=== PATIENT | male | born 1960 | race Two or more races ===

== ENCOUNTER 2020-04-06 12:49 | Inpatient (IN) | payer BC, OTHER ==
[~2020-04-06] VITALS: Ht 175.3 cm; Wt 76.4 kg
[2020-04-06] MEDS ORDERED: DexAMETHasone SOD PHOS 10MG/1ML VIAL INJ IV ONE (13:30)
[2020-04-06 13:48] LABS: Basophils # (auto) 0.1 10 ^3/uL (0-0.2); Basophils % (auto) 0.7 % (0.0-2.0); Eosinophils # (auto) 0 10 ^3/uL (0-0.8); Hematocrit 47.2 % (41.0-53.0); Hemoglobin 16.4 g/dL (13.5-17.5); Lymphocytes # (auto) 1.2 10 ^3/uL (0.4-5.4); Lymphocytes % (auto) 7.7 % (10.0-50.0); Mean Corpuscular Hemoglobin 30.1 pg (28.0-32.0); Mean Corpuscular Hgb Conc. 34.9 g/dL (32.0-36.0); Mean Corpuscular Volume 86.3 fL (80.0-100.0); Monocytes # (auto) 0.9 10 ^3/uL (0-1.3); Monocytes % (auto) 5.7 % (0.0-12.0); Neutrophils # (auto) 13.1 10 ^3/uL (1.6-8.6); Neutrophils % (auto) 85.9 % (37.0-80.0); Nucleated Red Blood Cells % 0.3 %; Platelet Count (auto) 342 10^3/uL (140-450); Red Blood Cells 5.46 10^6/uL (4.5-5.90); Red Cell Distribution Width 12.4 % (11.8-14.3); White Blood Cell 15.3 10^3/uL (4.4-10.8)
[2020-04-06 14:05] LABS: INR 1.03 (0.9-1.15); Partial Thromboplastin Time 24.1 sec (23.0-31.2)
[2020-04-06 14:18] LABS: Albumin 2.8 g/dL (3.4-5.0); Anion Gap 6 (5-15); Calcium 8.8 mg/dL (8.5-10.1); Carbon Dioxide 28 mmol/L (21-32); Chloride 96 mmol/L (98-107); Glucose 109 mg/dL (74-106); Potassium 4.3 mmol/L (3.5-5.1); Sodium 130 mmol/L (136-145)
[2020-04-06 14:28] LABS: Alanine Aminotransferase 58 U/L (16-61); Alkaline Phosphatase 98 U/L (45-117); Aspartate Aminotransferase 87 U/L (15-37); BUN/Creatinine Ratio 12.9; Bilirubin, Total 0.7 mg/dL (0.2-1.0); Blood Urea Nitrogen 12 mg/dL (7-18); GFR African American 106 mL/min; GFR Non-African American 88 mL/min; Lactate Dehydrogenase 619 U/L (87-241); Total Protein 8.5 g/dL (6.4-8.2)
[2020-04-06] MEDS ORDERED: ACETAMINOPHEN 500 MG TAB PO ONE (14:30)
[2020-04-06 14:45] LABS: CRP High Sensitivity > 19.0 mg/dL (< 0.3)
[2020-04-06 15:28] LABS: Urine Bacteria NONE SEEN /hpf (None Seen); Urine Blood 1+ /uL (Negative); Urine Mucus FEW (None Seen); Urine Specific Gravity 1.029 (1.001-1.035); Urine WBC 3 /hpf (0 - 3)
[2020-04-06] MEDS ORDERED: MORPHINE SULF INJ 2 MG/ML SYRINGE 1ML IV PRN (16:00)
[2020-04-06] MEDS ORDERED: NITROGLYCERIN 0.4 MG SL TAB SL PRN (16:00)
[2020-04-06] MEDS ORDERED: ACETAMINOPHEN 500 MG TAB PO PRN (16:45)
[2020-04-06] MEDS ORDERED: REMDESIVIR PER PHARMACY 0 ML IV SCH (16:45)
[2020-04-06] MEDS ORDERED: PROMETHAZINE HCL 25 MG/ML 1ML IV PRN (17:00)
[2020-04-06] MEDS ORDERED: LACTULOSE 20Gm/30ML SOLN PO PRN (17:00)
[2020-04-06] MEDS ORDERED: TEMAZEPAM 15 MG CAP PO PRN (17:00)
[2020-04-06] MEDS: SODIUM CHLORIDE 0.9% 1,000 ML IV SCH (17:17)
[2020-04-06] MEDS ORDERED: ALBUTEROL SULF 2.5 MG/0.5ML(0.5%) NEB SOLN NEB SCH (18:00)
[2020-04-06] MEDS ORDERED: IPRATROPIUM BROM 0.5 MG/2.5ML INH SOL NEB SCH (18:00)
[2020-04-06] MEDS: ALBUTEROL SULF HFA 90MCG INH 200DOSE IN PRN (19:52)
[2020-04-06] MEDS: BUDESONIDE (INHALATION) 180 MCG IH IN SCH (19:52)
[2020-04-06] MEDS ORDERED: REMDESIVIR 200 MG in NS 210ml LOADING DOSE ADULT IV ONE (20:00)
[2020-04-06] MEDS: FAMOTIDINE 20 MG TAB PO SCH (22:46)
[2020-04-06] MEDS: CLINDAMYCIN 600MG IV 50 ML IV SCH (22:47)
[2020-04-06] MEDS: ENOXAPARIN SOD 40 MG/0.4 ML SYRINGE SC SCH (22:55)
[2020-04-07] MEDS: CLINDAMYCIN 600MG IV 50 ML IV SCH (05:45)
[2020-04-07] MEDS: BUDESONIDE (INHALATION) 180 MCG IH IN SCH ×2 (06:06→22:00)
[2020-04-07 06:31] LABS: Basophils # (auto) 0 10 ^3/uL (0-0.2); Basophils % (auto) 0.2 % (0.0-2.0); Eosinophils # (auto) 0 10 ^3/uL (0-0.8); Hematocrit 41.9 % (41.0-53.0); Hemoglobin 14.5 g/dL (13.5-17.5); Lymphocytes % (auto) 9.4 % (10.0-50.0); Mean Corpuscular Hemoglobin 30.3 pg (28.0-32.0); Mean Corpuscular Hgb Conc. 34.6 g/dL (32.0-36.0); Mean Corpuscular Volume 87.5 fL (80.0-100.0); Monocytes % (auto) 9.4 % (0.0-12.0); Neutrophils # (auto) 8.7 10 ^3/uL (1.6-8.6); Nucleated Red Blood Cells % 0.4 %; Platelet Count (auto) 351 10^3/uL (140-450); Red Blood Cells 4.79 10^6/uL (4.5-5.90); Red Cell Distribution Width 12.4 % (11.8-14.3); White Blood Cell 10.8 10^3/uL (4.4-10.8)
[2020-04-07 06:41] LABS: Albumin 2.4 g/dL (3.4-5.0); Calcium 8.5 mg/dL (8.5-10.1); Potassium 3.9 mmol/L (3.5-5.1)
[2020-04-07 06:46] LABS: BUN/Creatinine Ratio 18.7; Bilirubin, Total 0.6 mg/dL (0.2-1.0); Total Protein 7.3 g/dL (6.4-8.2)
[2020-04-07] MEDS: SODIUM CHLORIDE 0.9% 1,000 ML IV SCH (07:55)
[2020-04-07] MEDS: traMADol HCL 50 MG TAB PO PRN (08:01)
[2020-04-07] MEDS: ASCORBIC ACID 1,000 MG TAB PO SCH (09:18)
[2020-04-07] MEDS: DexAMETHasone SOD PHOS 10MG/1ML VIAL INJ IV SCH (09:18)
[2020-04-07] MEDS: FAMOTIDINE 20 MG TAB PO SCH ×2 (09:18→23:23)
[2020-04-07] MEDS: ZINC SULFATE 220mg CAP or TAB PO SCH (09:18)
[2020-04-07] MEDS: CHOLECALCIFEROL (VITD3) 2,000 UNIT CAP PO SCH (09:18)
[2020-04-07] MEDS: ENOXAPARIN SOD 40 MG/0.4 ML SYRINGE SC SCH ×2 (09:19→23:23)
[2020-04-07] MEDS ORDERED: levoFLOXacin 500MG 100 ML IV SCH (10:00)
[2020-04-07] MEDS ORDERED: FUROSEMIDE 20 MG/2 ML VIAL IV ONE (10:15)
[2020-04-07] MEDS ORDERED: diphenhdrAMINE HCL 50 MG/1 ML VL IV PRN (10:15)
[2020-04-07] MEDS: REMDESIVIR 100 MG in SODIUM CHL 0.9% 250 ML IV SCH (16:15)
[2020-04-07 20:53] VITALS: BP 144/83
[2020-04-07 21:08] VITALS: BP 143/82
[2020-04-07 21:23] VITALS: BP 130/80
[2020-04-07 21:38] VITALS: BP 140/82
[2020-04-07 21:53] VITALS: BP 138/82
[2020-04-07] MEDS: FAMOTIDINE (10MG/ML) 2ML VL IV SCH (22:00)
[2020-04-07 22:11] VITALS: BP 136/78
[2020-04-07] MEDS: ALBUTEROL SULF HFA 90MCG INH 200DOSE IN PRN (22:31)
[2020-04-08] MEDS: BUDESONIDE (INHALATION) 180 MCG IH IN SCH ×2 (08:33→19:41)
[2020-04-08] MEDS: ALBUTEROL SULF HFA 90MCG INH 200DOSE IN PRN ×2 (08:33→21:13)
[2020-04-08] MEDS: DexAMETHasone SOD PHOS 10MG/1ML VIAL INJ IV SCH (10:24)
[2020-04-08] MEDS: FUROSEMIDE 20 MG/2 ML VIAL IV SCH (10:25)
[2020-04-08] MEDS: FAMOTIDINE (10MG/ML) 2ML VL IV SCH (10:25)
[2020-04-08] MEDS: CHOLECALCIFEROL (VITD3) 2,000 UNIT CAP PO SCH (10:26)
[2020-04-08] MEDS: AZITHROMYCIN 500MG/ 250ML 250 ML IV SCH (10:26)
[2020-04-08] MEDS: ASCORBIC ACID 1,000 MG TAB PO SCH (10:26)
[2020-04-08] MEDS: ZINC SULFATE 220mg CAP or TAB PO SCH (10:26)
[2020-04-08] MEDS: FAMOTIDINE 20 MG TAB PO SCH (10:26)
[2020-04-08] MEDS: ENOXAPARIN SOD 40 MG/0.4 ML SYRINGE SC SCH (10:27)
[2020-04-08] MEDS ORDERED: PIPERACILLIN-TAZO 4.5GM 100 ML IV ONE (15:00)
[2020-04-08] MEDS: REMDESIVIR 100 MG in SODIUM CHL 0.9% 250 ML IV SCH (16:02)
[2020-04-08] MEDS ORDERED: PIPERACILLIN-TAZOB 3.375GM 100 ML IV ONE (23:01)
[2020-04-09] MEDS: PIPERACILLIN-TAZOB 3.375GM 100 ML IV SCH ×4 (00:25→21:08)
[2020-04-09] MEDS: FAMOTIDINE 20 MG TAB PO SCH ×3 (00:25→21:09)
[2020-04-09] MEDS: ENOXAPARIN SOD 40 MG/0.4 ML SYRINGE SC SCH ×3 (00:25→21:09)
[2020-04-09] MEDS: BUDESONIDE (INHALATION) 180 MCG IH IN SCH (07:00)
[2020-04-09] MEDS: AZITHROMYCIN 500MG/ 250ML 250 ML IV SCH (09:07)
[2020-04-09] MEDS: DexAMETHasone SOD PHOS 10MG/1ML VIAL INJ IV SCH (09:07)
[2020-04-09] MEDS: FUROSEMIDE 20 MG/2 ML VIAL IV SCH (09:07)
[2020-04-09] MEDS: ASCORBIC ACID 1,000 MG TAB PO SCH (09:07)
[2020-04-09] MEDS: CHOLECALCIFEROL (VITD3) 2,000 UNIT CAP PO SCH (09:07)
[2020-04-09] MEDS: ZINC SULFATE 220mg CAP or TAB PO SCH (09:07)
[2020-04-09] MEDS: REMDESIVIR 100 MG in SODIUM CHL 0.9% 250 ML IV SCH (15:42)
[2020-04-10] MEDS: PIPERACILLIN-TAZOB 3.375GM 100 ML IV SCH ×3 (05:58→21:49)
[2020-04-10] MEDS: BUDESONIDE (INHALATION) 180 MCG IH IN SCH ×3 (08:18→18:15)
[2020-04-10 08:22] LABS: Albumin 2.5 g/dL (3.4-5.0); Calcium 8.6 mg/dL (8.5-10.1); Potassium 3.9 mmol/L (3.5-5.1)
[2020-04-10 08:26] LABS: BUN/Creatinine Ratio 18.4; Total Protein 7.9 g/dL (6.4-8.2)
[2020-04-10] MEDS: FUROSEMIDE 20 MG/2 ML VIAL IV SCH (10:00)
[2020-04-10] MEDS: AZITHROMYCIN 500MG/ 250ML 250 ML IV SCH (10:00)
[2020-04-10] MEDS: ENOXAPARIN SOD 40 MG/0.4 ML SYRINGE SC SCH ×2 (10:00→21:48)
[2020-04-10] MEDS: FAMOTIDINE 20 MG TAB PO SCH ×2 (10:00→21:49)
[2020-04-10] MEDS: ASCORBIC ACID 1,000 MG TAB PO SCH (10:00)
[2020-04-10] MEDS: CHOLECALCIFEROL (VITD3) 2,000 UNIT CAP PO SCH (10:00)
[2020-04-10] MEDS: DexAMETHasone SOD PHOS 10MG/1ML VIAL INJ IV SCH (10:00)
[2020-04-10] MEDS: ZINC SULFATE 220mg CAP or TAB PO SCH (10:00)
[2020-04-10] MEDS: ALBUTEROL SULF HFA 90MCG INH 200DOSE IN PRN ×2 (10:00→18:45)
[2020-04-10] MEDS: REMDESIVIR 100 MG in SODIUM CHL 0.9% 250 ML IV SCH (16:35)
[2020-04-11] MEDS: PIPERACILLIN-TAZOB 3.375GM 100 ML IV SCH ×3 (06:00→21:23)
[2020-04-11] MEDS: BUDESONIDE (INHALATION) 180 MCG IH IN SCH ×2 (07:03→18:53)
[2020-04-11] MEDS: ALBUTEROL SULF HFA 90MCG INH 200DOSE IN PRN ×2 (07:03→18:53)
[2020-04-11] MEDS: CHOLECALCIFEROL (VITD3) 2,000 UNIT CAP PO SCH (10:00)
[2020-04-11] MEDS: DexAMETHasone SOD PHOS 10MG/1ML VIAL INJ IV SCH (10:58)
[2020-04-11] MEDS: ASCORBIC ACID 1,000 MG TAB PO SCH (10:59)
[2020-04-11] MEDS: ZINC SULFATE 220mg CAP or TAB PO SCH (10:59)
[2020-04-11] MEDS: FAMOTIDINE 20 MG TAB PO SCH ×2 (10:59→21:24)
[2020-04-11] MEDS: ENOXAPARIN SOD 40 MG/0.4 ML SYRINGE SC SCH ×2 (10:59→21:24)
[2020-04-11] MEDS: AZITHROMYCIN 500MG/ 250ML 250 ML IV SCH (11:00)
[2020-04-11] MEDS: FUROSEMIDE 20 MG/2 ML VIAL IV SCH (11:02)
[2020-04-12] MEDS: PIPERACILLIN-TAZOB 3.375GM 100 ML IV SCH ×3 (05:51→22:04)
[2020-04-12] MEDS: BUDESONIDE (INHALATION) 180 MCG IH IN SCH ×2 (08:55→22:00)
[2020-04-12] MEDS: ALBUTEROL SULF HFA 90MCG INH 200DOSE IN PRN (08:55)
[2020-04-12] MEDS: ZINC SULFATE 220mg CAP or TAB PO SCH (10:00)
[2020-04-12] MEDS: CHOLECALCIFEROL (VITD3) 2,000 UNIT CAP PO SCH (10:00)
[2020-04-12] MEDS: ENOXAPARIN SOD 40 MG/0.4 ML SYRINGE SC SCH ×2 (10:00→22:04)
[2020-04-12] MEDS: ASCORBIC ACID 1,000 MG TAB PO SCH (10:00)
[2020-04-12] MEDS: DexAMETHasone SOD PHOS 10MG/1ML VIAL INJ IV SCH (10:00)
[2020-04-12] MEDS: FUROSEMIDE 20 MG/2 ML VIAL IV SCH (10:00)
[2020-04-12] MEDS: FAMOTIDINE 20 MG TAB PO SCH ×2 (10:00→22:04)
[2020-04-12] MEDS: AZITHROMYCIN 500MG/ 250ML 250 ML IV SCH (10:00)
[2020-04-12] MEDS ORDERED: LORazepam 2MG/ML-1ML VIAL IV ONE (11:30)
[2020-04-13] MEDS: PIPERACILLIN-TAZOB 3.375GM 100 ML IV SCH ×3 (05:32→22:19)
[2020-04-13 06:19] LABS: Basophils # (auto) 0 10 ^3/uL (0-0.2); Basophils % (auto) 0.2 % (0.0-2.0); Eosinophils # (auto) 0.1 10 ^3/uL (0-0.8); Eosinophils % (auto) 0.7 % (0.0-7.0); Hematocrit 38.4 % (41.0-53.0); Hemoglobin 12.9 g/dL (13.5-17.5); Lymphocytes # (auto) 2.1 10 ^3/uL (0.4-5.4); Lymphocytes % (auto) 16.1 % (10.0-50.0); Mean Corpuscular Hemoglobin 29.5 pg (28.0-32.0); Mean Corpuscular Hgb Conc. 33.7 g/dL (32.0-36.0); Mean Corpuscular Volume 87.4 fL (80.0-100.0); Monocytes # (auto) 1.2 10 ^3/uL (0-1.3); Monocytes % (auto) 9.5 % (0.0-12.0); Neutrophils # (auto) 9.3 10 ^3/uL (1.6-8.6); Neutrophils % (auto) 73.5 % (37.0-80.0); Nucleated Red Blood Cells % 0.1 %; Platelet Count (auto) 525 10^3/uL (140-450); Red Blood Cells 4.39 10^6/uL (4.5-5.90); Red Cell Distribution Width 12.4 % (11.8-14.3); White Blood Cell 12.7 10^3/uL (4.4-10.8)
[2020-04-13 06:32] LABS: Potassium 3.5 mmol/L (3.5-5.1)
[2020-04-13 07:01] LABS: Albumin 2.1 g/dL (3.4-5.0); BUN/Creatinine Ratio 24.7; Bilirubin, Total 0.7 mg/dL (0.2-1.0); CRP High Sensitivity 6.6 mg/dL (< 0.3); Calcium 8.5 mg/dL (8.5-10.1); Total Protein 7.2 g/dL (6.4-8.2)
[2020-04-13] MEDS: BUDESONIDE (INHALATION) 180 MCG IH IN SCH ×2 (07:39→18:11)
[2020-04-13] MEDS: DexAMETHasone SOD PHOS 10MG/1ML VIAL INJ IV SCH (10:09)
[2020-04-13] MEDS: ZINC SULFATE 220mg CAP or TAB PO SCH (10:11)
[2020-04-13] MEDS: FUROSEMIDE 20 MG/2 ML VIAL IV SCH (10:11)
[2020-04-13] MEDS: ASCORBIC ACID 1,000 MG TAB PO SCH (10:12)
[2020-04-13] MEDS: CHOLECALCIFEROL (VITD3) 2,000 UNIT CAP PO SCH (10:12)
[2020-04-13] MEDS: FAMOTIDINE 20 MG TAB PO SCH ×2 (10:12→22:27)
[2020-04-13] MEDS: ENOXAPARIN SOD 40 MG/0.4 ML SYRINGE SC SCH ×2 (10:12→22:27)
[2020-04-13] MEDS: ALBUTEROL SULF HFA 90MCG INH 200DOSE IN PRN (18:11)
[2020-04-14] MEDS: PIPERACILLIN-TAZOB 3.375GM 100 ML IV SCH ×2 (06:02→15:02)
[2020-04-14] MEDS: ALBUTEROL SULF HFA 90MCG INH 200DOSE IN PRN ×2 (07:29→22:01)
[2020-04-14] MEDS: BUDESONIDE (INHALATION) 180 MCG IH IN SCH ×2 (07:29→22:01)
[2020-04-14 07:31] LABS: Basophils # (auto) 0 10 ^3/uL (0-0.2); Basophils % (auto) 0.2 % (0.0-2.0); Eosinophils # (auto) 0.1 10 ^3/uL (0-0.8); Hemoglobin 13.7 g/dL (13.5-17.5); Mean Corpuscular Volume 87.2 fL (80.0-100.0); Monocytes # (auto) 1.3 10 ^3/uL (0-1.3); Monocytes % (auto) 10.5 % (0.0-12.0)
[2020-04-14 07:33] LABS: Eosinophils % (auto) 0.7 % (0.0-7.0); Hematocrit 38.9 % (41.0-53.0); Lymphocytes # (auto) 2.7 10 ^3/uL (0.4-5.4); Lymphocytes % (auto) 22.5 % (10.0-50.0); Mean Corpuscular Hemoglobin 30.7 pg (28.0-32.0); Mean Corpuscular Hgb Conc. 35.2 g/dL (32.0-36.0); Neutrophils % (auto) 66.1 % (37.0-80.0); Platelet Count (auto) 466 10^3/uL (140-450); Red Blood Cells 4.46 10^6/uL (4.5-5.90); Red Cell Distribution Width 12.3 % (11.8-14.3); White Blood Cell 12.1 10^3/uL (4.4-10.8)
[2020-04-14 07:49] LABS: Potassium 3.6 mmol/L (3.5-5.1)
[2020-04-14 07:55] LABS: Albumin 2.1 g/dL (3.4-5.0); BUN/Creatinine Ratio 22.5; Bilirubin, Total 0.6 mg/dL (0.2-1.0); Calcium 8.5 mg/dL (8.5-10.1); Total Protein 7.1 g/dL (6.4-8.2)
[2020-04-14] MEDS: ASCORBIC ACID 1,000 MG TAB PO SCH (12:38)
[2020-04-14] MEDS: FAMOTIDINE 20 MG TAB PO SCH (12:38)
[2020-04-14] MEDS: DexAMETHasone SOD PHOS 10MG/1ML VIAL INJ IV SCH (12:38)
[2020-04-14] MEDS: FUROSEMIDE 20 MG/2 ML VIAL IV SCH (12:38)
[2020-04-14] MEDS: ZINC SULFATE 220mg CAP or TAB PO SCH (12:38)
[2020-04-14] MEDS: CHOLECALCIFEROL (VITD3) 2,000 UNIT CAP PO SCH (12:38)
[2020-04-14] MEDS: ENOXAPARIN SOD 40 MG/0.4 ML SYRINGE SC SCH (12:39)
[2020-04-15] MEDS: ENOXAPARIN SOD 40 MG/0.4 ML SYRINGE SC SCH ×3 (00:07→22:52)
[2020-04-15] MEDS: FAMOTIDINE 20 MG TAB PO SCH ×3 (00:07→22:52)
[2020-04-15] MEDS: PIPERACILLIN-TAZOB 3.375GM 100 ML IV SCH ×4 (00:08→22:52)
[2020-04-15] MEDS: ZINC SULFATE 220mg CAP or TAB PO SCH (10:09)
[2020-04-15] MEDS: DexAMETHasone SOD PHOS 10MG/1ML VIAL INJ IV SCH (10:10)
[2020-04-15] MEDS: CHOLECALCIFEROL (VITD3) 2,000 UNIT CAP PO SCH (10:10)
[2020-04-15] MEDS: ASCORBIC ACID 1,000 MG TAB PO SCH (10:10)
[2020-04-15] MEDS: FUROSEMIDE 20 MG/2 ML VIAL IV SCH (10:11)
[2020-04-15] MEDS: ALBUTEROL SULF HFA 90MCG INH 200DOSE IN PRN ×2 (10:22→21:44)
[2020-04-15] MEDS: BUDESONIDE (INHALATION) 180 MCG IH IN SCH ×2 (10:22→21:44)
[2020-04-15 12:00] VITALS: BP 104/68
[2020-04-15 21:15] LABS: Urine Bacteria NONE SEEN /hpf (None Seen); Urine Blood Negative /uL (Negative); Urine Mucus FEW (None Seen); Urine Specific Gravity 1.031 (1.001-1.035); Urine WBC 1 /hpf (0 - 3)
[2020-04-16] MEDS: PIPERACILLIN-TAZOB 3.375GM 100 ML IV SCH ×3 (06:30→21:55)
[2020-04-16] MEDS: BUDESONIDE (INHALATION) 180 MCG IH IN SCH ×2 (07:05→19:30)
[2020-04-16] MEDS: ALBUTEROL SULF HFA 90MCG INH 200DOSE IN PRN ×2 (07:05→19:30)
[2020-04-16] MEDS: DexAMETHasone SOD PHOS 10MG/1ML VIAL INJ IV SCH (09:43)
[2020-04-16] MEDS: FUROSEMIDE 20 MG/2 ML VIAL IV SCH (09:44)
[2020-04-16] MEDS: FAMOTIDINE 20 MG TAB PO SCH ×2 (09:44→21:56)
[2020-04-16] MEDS: ZINC SULFATE 220mg CAP or TAB PO SCH (09:44)
[2020-04-16] MEDS: CHOLECALCIFEROL (VITD3) 2,000 UNIT CAP PO SCH (09:44)
[2020-04-16] MEDS: ASCORBIC ACID 1,000 MG TAB PO SCH (09:44)
[2020-04-16] MEDS: ENOXAPARIN SOD 40 MG/0.4 ML SYRINGE SC SCH ×2 (09:44→21:56)
[2020-04-16 11:01] VITALS: BP 113/75
[2020-04-16 13:19] VITALS: BP 136/77
[2020-04-16 16:54] VITALS: BP 109/48
[2020-04-16 22:00] VITALS: BP 101/55
[2020-04-17 05:22] VITALS: BP 108/72
[2020-04-17] MEDS: PIPERACILLIN-TAZOB 3.375GM 100 ML IV SCH ×2 (06:24→14:50)
[2020-04-17] MEDS: BUDESONIDE (INHALATION) 180 MCG IH IN SCH ×2 (06:38→18:15)
[2020-04-17] MEDS: ALBUTEROL SULF HFA 90MCG INH 200DOSE IN PRN ×2 (06:39→18:15)
[2020-04-17 06:59] LABS: Hematocrit 39.3 % (41.0-53.0); Hemoglobin 13.7 g/dL (13.5-17.5); Mean Corpuscular Hemoglobin 30.6 pg (28.0-32.0); Mean Corpuscular Hgb Conc. 34.8 g/dL (32.0-36.0); Mean Corpuscular Volume 87.9 fL (80.0-100.0); Platelet Count (auto) 415 10^3/uL (140-450); Red Blood Cells 4.47 10^6/uL (4.5-5.90); Red Cell Distribution Width 12.4 % (11.8-14.3); White Blood Cell 12.9 10^3/uL (4.4-10.8)
[2020-04-17 07:24] LABS: Band Neutrophils % (manual) 0; Basophils % (manual) 0 (0.0-2.0); Blast Cells 0; Eosinophils % (manual) 0 (0-7); Metamyelocytes % 0; Myelocytes % 0; Promyelocytes % 0; Reactive Lymphocytes 0
[2020-04-17 07:24] LABS: Potassium 4.2 mmol/L (3.5-5.1)
[2020-04-17 07:41] LABS: Albumin 2.4 g/dL (3.4-5.0); Bilirubin, Total 0.6 mg/dL (0.2-1.0); Calcium 8.9 mg/dL (8.5-10.1); Magnesium 2.7 mg/dL (1.6-2.6); Total Protein 7.3 g/dL (6.4-8.2)
[2020-04-17 08:43] VITALS: BP 106/68
[2020-04-17 08:43] LABS: Lymphocytes % (manual) 26 (10.0-50.0); Monocytes % (manual) 3 (0-12)
[2020-04-17] MEDS: CHOLECALCIFEROL (VITD3) 2,000 UNIT CAP PO SCH (10:40)
[2020-04-17] MEDS: FUROSEMIDE 20 MG/2 ML VIAL IV SCH (10:40)
[2020-04-17] MEDS: ZINC SULFATE 220mg CAP or TAB PO SCH (10:40)
[2020-04-17] MEDS: DexAMETHasone SOD PHOS 10MG/1ML VIAL INJ IV SCH (10:40)
[2020-04-17] MEDS: ASCORBIC ACID 1,000 MG TAB PO SCH (10:40)
[2020-04-17] MEDS: FAMOTIDINE 20 MG TAB PO SCH ×2 (10:40→21:56)
[2020-04-17] MEDS: ENOXAPARIN SOD 40 MG/0.4 ML SYRINGE SC SCH ×2 (10:41→21:56)
[2020-04-17 13:00] VITALS: BP 111/74
[2020-04-17 16:56] VITALS: BP 114/71
[2020-04-17 22:00] VITALS: BP 99/57
[2020-04-18 05:00] VITALS: BP 123/77
[2020-04-18] MEDS: BUDESONIDE (INHALATION) 180 MCG IH IN SCH (07:07)
[2020-04-18 09:00] VITALS: BP 115/79
[2020-04-18] MEDS: ZINC SULFATE 220mg CAP or TAB PO SCH (11:35)
[2020-04-18] MEDS: ASCORBIC ACID 1,000 MG TAB PO SCH (11:36)
[2020-04-18] MEDS: FAMOTIDINE 20 MG TAB PO SCH ×2 (11:36→22:41)
[2020-04-18] MEDS: CHOLECALCIFEROL (VITD3) 2,000 UNIT CAP PO SCH (11:36)
[2020-04-18] MEDS: DexAMETHasone SOD PHOS 10MG/1ML VIAL INJ IV SCH (11:42)
[2020-04-18] MEDS: FUROSEMIDE 20 MG/2 ML VIAL IV SCH (11:42)
[2020-04-18] MEDS: ENOXAPARIN SOD 40 MG/0.4 ML SYRINGE SC SCH ×2 (11:43→22:41)
[2020-04-18 13:00] VITALS: BP 104/74
[2020-04-18 17:00] VITALS: BP 102/61
[2020-04-18 22:00] VITALS: BP 113/69
[2020-04-19 06:50] VITALS: BP 119/81
[2020-04-19] MEDS: ALBUTEROL SULF HFA 90MCG INH 200DOSE IN PRN ×2 (07:07→19:18)
[2020-04-19 09:00] VITALS: BP 121/76
[2020-04-19] MEDS: ZINC SULFATE 220mg CAP or TAB PO SCH (09:45)
[2020-04-19] MEDS: DexAMETHasone SOD PHOS 10MG/1ML VIAL INJ IV SCH (09:48)
[2020-04-19] MEDS: FUROSEMIDE 20 MG/2 ML VIAL IV SCH (09:48)
[2020-04-19] MEDS: ENOXAPARIN SOD 40 MG/0.4 ML SYRINGE SC SCH ×2 (09:49→21:48)
[2020-04-19] MEDS: CHOLECALCIFEROL (VITD3) 2,000 UNIT CAP PO SCH (09:49)
[2020-04-19] MEDS: ASCORBIC ACID 1,000 MG TAB PO SCH (09:49)
[2020-04-19] MEDS: BUDESONIDE (INHALATION) 180 MCG IH IN SCH ×2 (10:00→19:17)
[2020-04-19] MEDS: FAMOTIDINE 20 MG TAB PO SCH ×2 (11:01→21:47)
[2020-04-19 13:00] VITALS: BP 98/57
[2020-04-19 17:00] VITALS: BP 114/71
[2020-04-19 21:00] VITALS: BP 126/68
[2020-04-20] MEDS: ALBUTEROL SULF HFA 90MCG INH 200DOSE IN PRN ×2 (06:27→21:44)
[2020-04-20 06:45] LABS: Hematocrit 40.5 % (41.0-53.0); Hemoglobin 14.1 g/dL (13.5-17.5); Mean Corpuscular Hemoglobin 30.5 pg (28.0-32.0); Mean Corpuscular Hgb Conc. 34.9 g/dL (32.0-36.0); Mean Corpuscular Volume 87.5 fL (80.0-100.0); Platelet Count (auto) 385 10^3/uL (140-450); Red Blood Cells 4.63 10^6/uL (4.5-5.90); Red Cell Distribution Width 12.8 % (11.8-14.3); White Blood Cell 12.1 10^3/uL (4.4-10.8)
[2020-04-20 06:54] LABS: Potassium 4.4 mmol/L (3.5-5.1)
[2020-04-20 07:03] LABS: Albumin 2.7 g/dL (3.4-5.0); BUN/Creatinine Ratio 26.2; Bilirubin, Total 0.5 mg/dL (0.2-1.0); CRP High Sensitivity 0.29 mg/dL (< 0.3); Calcium 8.9 mg/dL (8.5-10.1); Total Protein 7.3 g/dL (6.4-8.2)
[2020-04-20 07:23] LABS: Blast Cells 0; Promyelocytes % 0; Reactive Lymphocytes 0
[2020-04-20 08:00] VITALS: BP 120/81
[2020-04-20] MEDS: ASCORBIC ACID 1,000 MG TAB PO SCH (10:57)
[2020-04-20] MEDS: ENOXAPARIN SOD 40 MG/0.4 ML SYRINGE SC SCH ×2 (10:58→21:54)
[2020-04-20] MEDS: FAMOTIDINE 20 MG TAB PO SCH ×2 (10:58→21:53)
[2020-04-20] MEDS: FUROSEMIDE 20 MG/2 ML VIAL IV SCH (10:59)
[2020-04-20] MEDS: ZINC SULFATE 220mg CAP or TAB PO SCH (10:59)
[2020-04-20] MEDS: DexAMETHasone SOD PHOS 10MG/1ML VIAL INJ IV SCH (10:59)
[2020-04-20] MEDS: CHOLECALCIFEROL (VITD3) 2,000 UNIT CAP PO SCH (11:00)
[2020-04-20 12:08] LABS: Band Neutrophils % (manual) 5; Basophils % (manual) 1 (0.0-2.0); Eosinophils % (manual) 2 (0-7); Lymphocytes % (manual) 24 (10.0-50.0); Metamyelocytes % 1; Monocytes % (manual) 9 (0-12); Myelocytes % 4
[2020-04-20 16:00] VITALS: BP 103/59
[2020-04-20] MEDS: BUDESONIDE (INHALATION) 180 MCG IH IN SCH (21:44)
[2020-04-20 22:00] VITALS: BP 102/51
[2020-04-21 05:00] VITALS: BP 119/77
[2020-04-21 09:39] VITALS: BP 110/70
[2020-04-21] MEDS: FAMOTIDINE 20 MG TAB PO SCH ×2 (10:00→21:55)
[2020-04-21] MEDS: CHOLECALCIFEROL (VITD3) 2,000 UNIT CAP PO SCH (10:00)
[2020-04-21] MEDS: ENOXAPARIN SOD 40 MG/0.4 ML SYRINGE SC SCH ×2 (11:01→21:55)
[2020-04-21] MEDS: FUROSEMIDE 20 MG/2 ML VIAL IV SCH (11:01)
[2020-04-21] MEDS: DexAMETHasone SOD PHOS 10MG/1ML VIAL INJ IV SCH (11:04)
[2020-04-21] MEDS: ASCORBIC ACID 1,000 MG TAB PO SCH (11:05)
[2020-04-21] MEDS: ZINC SULFATE 220mg CAP or TAB PO SCH (11:05)
[2020-04-21 16:00] VITALS: BP 113/82
[2020-04-21] MEDS: BUDESONIDE (INHALATION) 180 MCG IH IN SCH (22:00)
[2020-04-21 22:59] VITALS: BP 122/82
[2020-04-22] MEDS: BUDESONIDE (INHALATION) 180 MCG IH IN SCH ×3 (01:08→22:19)
[2020-04-22 05:05] VITALS: BP 121/79
[2020-04-22 08:00] VITALS: BP 105/72
[2020-04-22] MEDS: ENOXAPARIN SOD 40 MG/0.4 ML SYRINGE SC SCH ×2 (09:53→22:20)
[2020-04-22] MEDS: FUROSEMIDE 20 MG/2 ML VIAL IV SCH (09:53)
[2020-04-22] MEDS: DexAMETHasone SOD PHOS 10MG/1ML VIAL INJ IV SCH (09:53)
[2020-04-22] MEDS: FAMOTIDINE 20 MG TAB PO SCH ×2 (09:54→22:20)
[2020-04-22] MEDS: ZINC SULFATE 220mg CAP or TAB PO SCH (09:55)
[2020-04-22] MEDS: CHOLECALCIFEROL (VITD3) 2,000 UNIT CAP PO SCH (09:55)
[2020-04-22] MEDS: ASCORBIC ACID 1,000 MG TAB PO SCH (09:55)
[2020-04-22 16:00] VITALS: BP 112/70
[2020-04-22] MEDS: ACETYLCYSTEINE 20%(200MG/ML) SOL 4ML NEB SCH (22:00)
[2020-04-23] VITALS: BP 132/81
[2020-04-23] MEDS: ACETYLCYSTEINE 20%(200MG/ML) SOL 4ML NEB SCH (05:46)
[2020-04-23 08:00] VITALS: BP 116/79
[2020-04-23] MEDS: CHOLECALCIFEROL (VITD3) 2,000 UNIT CAP PO SCH (10:20)
[2020-04-23] MEDS: FUROSEMIDE 20 MG/2 ML VIAL IV SCH (10:22)
[2020-04-23] MEDS: DexAMETHasone SOD PHOS 10MG/1ML VIAL INJ IV SCH (10:22)
[2020-04-23] MEDS: ZINC SULFATE 220mg CAP or TAB PO SCH (10:25)
[2020-04-23] MEDS: BUDESONIDE (INHALATION) 180 MCG IH IN SCH ×2 (10:25→20:00)
[2020-04-23] MEDS: ASCORBIC ACID 1,000 MG TAB PO SCH (10:25)
[2020-04-23] MEDS: ENOXAPARIN SOD 40 MG/0.4 ML SYRINGE SC SCH ×2 (10:25→21:36)
[2020-04-23] MEDS: FAMOTIDINE 20 MG TAB PO SCH ×2 (10:26→21:35)
[2020-04-23] MEDS: FLORASTOR (S. BOULARDII) 250 MG CAP PO SCH (11:15)
[2020-04-23] MEDS: PIPERACILLIN-TAZO 4.5GM 100 ML IV SCH ×2 (14:30→21:35)
[2020-04-23 16:05] VITALS: BP 108/71
[2020-04-23 20:00] VITALS: BP 98/58
[2020-04-23] MEDS: ALBUTEROL SULF HFA 90MCG INH 200DOSE IN PRN (20:00)
[2020-04-24] VITALS: BP 94/56
[2020-04-24] MEDS: traMADol HCL 50 MG TAB PO PRN (01:44)
[2020-04-24] MEDS: PIPERACILLIN-TAZO 4.5GM 100 ML IV SCH ×3 (06:00→22:50)
[2020-04-24] MEDS: BUDESONIDE (INHALATION) 180 MCG IH IN SCH ×2 (07:14→19:10)
[2020-04-24] MEDS: ALBUTEROL SULF HFA 90MCG INH 200DOSE IN PRN ×2 (07:14→19:10)
[2020-04-24 08:00] VITALS: BP 112/70
[2020-04-24 09:00] VITALS: BP 112/70
[2020-04-24] MEDS: ZINC SULFATE 220mg CAP or TAB PO SCH (09:37)
[2020-04-24] MEDS: DexAMETHasone SOD PHOS 10MG/1ML VIAL INJ IV SCH (09:37)
[2020-04-24] MEDS: ENOXAPARIN SOD 40 MG/0.4 ML SYRINGE SC SCH ×2 (09:37→22:51)
[2020-04-24] MEDS: FLORASTOR (S. BOULARDII) 250 MG CAP PO SCH (09:38)
[2020-04-24] MEDS: CHOLECALCIFEROL (VITD3) 2,000 UNIT CAP PO SCH (09:39)
[2020-04-24] MEDS: FAMOTIDINE 20 MG TAB PO SCH ×2 (09:39→22:50)
[2020-04-24] MEDS: ASCORBIC ACID 1,000 MG TAB PO SCH (09:39)
[2020-04-24] MEDS: FUROSEMIDE 20 MG/2 ML VIAL IV SCH (09:40)
[2020-04-24 16:27] VITALS: BP 114/78
[2020-04-24 16:58] VITALS: BP 120/60
[2020-04-25] VITALS: BP 109/73
[2020-04-25] MEDS: PIPERACILLIN-TAZO 4.5GM 100 ML IV SCH ×2 (05:31→14:00)
[2020-04-25] MEDS: ALBUTEROL SULF HFA 90MCG INH 200DOSE IN PRN (07:30)
[2020-04-25] MEDS: BUDESONIDE (INHALATION) 180 MCG IH IN SCH (07:30)
[2020-04-25 08:00] VITALS: BP 109/74
[2020-04-25] MEDS: DexAMETHasone SOD PHOS 10MG/1ML VIAL INJ IV SCH (09:48)
[2020-04-25] MEDS: CHOLECALCIFEROL (VITD3) 2,000 UNIT CAP PO SCH (09:52)
[2020-04-25] MEDS: FLORASTOR (S. BOULARDII) 250 MG CAP PO SCH (09:52)
[2020-04-25] MEDS: FAMOTIDINE 20 MG TAB PO SCH (09:52)
[2020-04-25] MEDS: ENOXAPARIN SOD 40 MG/0.4 ML SYRINGE SC SCH (09:52)
[2020-04-25] MEDS: ASCORBIC ACID 1,000 MG TAB PO SCH (09:52)
[2020-04-25] MEDS: FUROSEMIDE 20 MG/2 ML VIAL IV SCH (09:53)
[2020-04-25] MEDS: ZINC SULFATE 220mg CAP or TAB PO SCH (09:53)
== END 2020-04-25 15:50 | disposition home or self-care (01) | DRG 177 ==
LOC: ER 12:49 → OVERFLOW 12:50 → TELE-E-ADS 04-16 10:31
PROVIDERS: ADMIT Internal Medicine; ATTEND Internal Medicine
PROC: XW033E5 Introduction of Remdesivir Anti-infective into Peripheral Vein, Percutaneous Approach, New Technology Group 5 (ICD-10-PCS; principal; 2020-04-06)
PROC: XW13325 Transfusion of Convalescent Plasma (Nonautologous) into Peripheral Vein, Percutaneous Approach, New Technology Group 5 (ICD-10-PCS; 2020-04-07)
DX: U07.1 COVID-19 (principal); J96.01 Acute respiratory failure with hypoxia; J12.89 Other viral pneumonia; E87.1 Hypo-osmolality and hyponatremia; E55.9 Vitamin D deficiency, unspecified; R79.89 Other specified abnormal findings of blood chemistry; K20.90 Esophagitis, unspecified without bleeding
CPT/HCPCS: 36415; 36600; 70450; 71045; 71250; 80053; 81001; 82306; 82728; 82805; 83036; 83615; 83735; 83880; 84443; 84484; 85007; 85025; 85027; 85379; 85610; 85652; 85730; 86141; 86850; 86900; 86901; 87070; 87077; 87186; 87205; 87426; 93005; 94640; 96365; 96366; 96368; 96372; 96375; 99291; G0378; J1100; J1956; J2543; J3490